=== PATIENT | female | born 1985 | race Caucasian/White ===

== ENCOUNTER 2017-06-24 19:36 | Emergency (ER) | payer OTHER ==
[~2017-06-24] VITALS: Ht 165.1 cm; Wt 93.4 kg
[2017-06-24 20:55] LABS: HEMATOCRIT 33.3 % (36.0-46.0); MCH 30.1 PG (29.0-34.0); MCV 83.5 FL (83-99); PLATELET COUNT 206 K/uL (156-360); RBC DIS.WIDTH-CV 12.9 % (11.8-14.6); RBC DIS.WIDTH-SD 39.3 % (39-53); RED BLOOD COUNT 3.99 M/uL (3.80-5.20); WHITE BLOOD COUNT 7.6 K/uL (4.1-10.2)
[2017-06-24 21:03] LABS: APPEARANCE SL.HAZY ((CLEAR)); BILIRUBIN NEGATIVE; BLOOD NEGATIVE; COLOR YELLOW ((YELLOW)); GLUCOSE (STRIP) >=500; KETONES 5; LEUKOCYTES NEGATIVE; NITRITE NEGATIVE; PROTEIN (STRIP) 100; SPECIFIC GRAVITY 1.035 (1.000-1.030)
[2017-06-24 21:50] LABS: BACTERIA NONE SEEN /HPF; CALCIUM OXALATE CRYSTALS 4+ /HPF; EPITHELIAL CELLS RARE /HPF; MUCUS TRACE /LPF; RED BLOOD CELLS NONE SEEN /HPF (0-5); UCUL ADDED? NO; WHITE BLOOD CELLS 0-5 /HPF (0-5)
[2017-06-24 22:48] VITALS: BP 129/78
[2017-06-24 22:49] LABS: QUANTITATIVE HCG 41911.2 MIU/ML
[2017-06-24 22:58] LABS: CHLORIDE 102 MEQ/L (99-109); CREATININE 0.7 MG/DL (0.6-1.3); GFR ESTIMATE (CALCULATED) > 59 mL/min/; GLUCOSE 234 mg/dL (70-99); POTASSIUM 3.8 MEQ/L (3.7-5.4); SODIUM 135 MEQ/L (136-147); UREA NITROGEN (BUN) 12 mg/dL (9-23)
== END 2017-06-24 22:48 | disposition home or self-care (01) ==
LOC: EME 19:36
DX: O20.0 Threatened abortion (principal); R10.9 Unspecified abdominal pain; O24.419 Gestational diabetes mellitus in pregnancy, unspecified control; Z3A.13 13 weeks gestation of pregnancy
CPT/HCPCS: 76801; 80048; 81003; 84702; 85027; 99281; 99284

== ENCOUNTER 2017-07-23 11:54 | Emergency (ER) | payer OTHER ==
[~2017-07-23] VITALS: Ht 167.6 cm; Wt 90.4 kg
[2017-07-23 12:49] LABS: HEMATOCRIT 32.6 % (36.0-46.0); HEMOGLOBIN 11.8 G/DL (11.9-15.5); MCH 30.9 PG (29.0-34.0); MCHC 36.2 G/DL (30.0-36.0); MCV 85.3 FL (83-99); PLATELET COUNT 186 K/uL (156-360); RBC DIS.WIDTH-CV 13.2 % (11.8-14.6); RBC DIS.WIDTH-SD 40.3 % (39-53); RED BLOOD COUNT 3.82 M/uL (3.80-5.20); WHITE BLOOD COUNT 7.4 K/uL (4.1-10.2)
[2017-07-23 12:59] LABS: CHLORIDE 106 mEq/L (99-109); SODIUM 136 mEq/L (136-147)
[2017-07-23 13:01] LABS: GLUCOSE 139 mg/dL (70-99)
[2017-07-23 13:04] LABS: CREATININE 0.7 mg/dL (0.6-1.3); GFR ESTIMATE (CALCULATED) > 59 mL/min/
[2017-07-23 13:05] LABS: UREA NITROGEN (BUN) 11 mg/dL (9-23)
[2017-07-23 13:13] LABS: QUANTITATIVE HCG 13206.4 MIU/ML
[2017-07-23 13:18] LABS: APPEARANCE CLEAR ((CLEAR)); BILIRUBIN NEGATIVE; BLOOD NEGATIVE; COLOR AMBER ((YELLOW)); GLUCOSE (STRIP) 150; KETONES NEGATIVE; LEUKOCYTES NEGATIVE; NITRITE NEGATIVE; PROTEIN (STRIP) 100; SPECIFIC GRAVITY 1.034 (1.000-1.030)
[2017-07-23 13:20] LABS: BACTERIA RARE /HPF; EPITHELIAL CELLS RARE /HPF; MUCUS TRACE /LPF; RED BLOOD CELLS 0-5 /HPF (0-5); UCUL ADDED? NO; WHITE BLOOD CELLS 0-5 /HPF (0-5)
[2017-07-23] MEDS ORDERED: ZOFRAN ODT4 MG PO (16:07)
[2017-07-23 16:18] VITALS: BP 116/81
== END 2017-07-23 16:19 | disposition home or self-care (01) ==
LOC: EME 11:54
DX: O44.02 Complete placenta previa NOS or without hemorrhage, second trimester (principal); Z3A.17 17 weeks gestation of pregnancy; O24.419 Gestational diabetes mellitus in pregnancy, unspecified control
CPT/HCPCS: 76805; 80048; 81003; 84702; 85027; 99281; 99284

== ENCOUNTER 2017-09-05 16:35 | Outpatient (CLI) | payer OTHER ==
[~2017-09-05] VITALS: Ht 165.1 cm; Wt 91.0 kg
[~2017-09-05 16:35] MED LIST: ZOFRAN ODT4 MG PO
[2017-09-05 16:59] VITALS: BP 124/64
[2017-09-05] MEDS ORDERED: PRENATAL TABLE1 EAC3 PO (17:05)
[2017-09-05] MEDS ORDERED: HUMALOG100 UNIT/1 SC (17:07)
[2017-09-05] MEDS ORDERED: FERRETTS325 MG PO (17:08)
[2017-09-05] MEDS ORDERED: HUMULIN 70100 UNIT/2 SQ (17:09)
== END 2017-09-05 18:00 | disposition home or self-care (01) ==
LOC: LDRP-OP 16:35 → 2WEST 16:37 → LDRP-OP 01-28 16:04
PROVIDERS: Obstetrics & Gynecology
DX: O36.8120 Decreased fetal movements, second trimester, not applicable or unspecified (principal); O24.912 Unspecified diabetes mellitus in pregnancy, second trimester; O99.212 Obesity complicating pregnancy, second trimester; O99.342 Other mental disorders complicating pregnancy, second trimester; E66.9 Obesity, unspecified; F32.9 Major depressive disorder, single episode, unspecified; Z3A.23 23 weeks gestation of pregnancy; Z79.4 Long term (current) use of insulin; Z87.891 Personal history of nicotine dependence; Z68.29 Body mass index [BMI] 29.0-29.9, adult
CPT/HCPCS: 59025; 82948; G0378

== ENCOUNTER → 2017-10-02 | Outpatient (CLI) | payer OTHER ==
[~2017-10-02] VITALS: Ht 167.6 cm; Wt 91.8 kg
[~2017-10-02] MED LIST changes: +ASPIR 8181 M1 PO; +FERRETTS325 MG PO; +HUMALOG100 UNIT/1 SC; +HUMULIN 70100 UNIT/2 SQ; +PRENATAL TABLE1 EAC3 PO
[2017-10-02 14:10] VITALS: BP 121/67
== END | disposition home or self-care (01) ==
LOC: IVINF 13:58
DX: Z34.80 Encounter for supervision of other normal pregnancy, unspecified trimester (principal); Z31.82 Encounter for Rh incompatibility status; Z3A.00 Weeks of gestation of pregnancy not specified; Z67.91 Unspecified blood type, Rh negative
CPT/HCPCS: J2790

== ENCOUNTER 2017-10-15 07:14 | Outpatient (CLI) | payer OTHER ==
[2017-10-15 07:37] VITALS: BP 124/71
[2017-10-15 10:21] LABS: APPEARANCE CLOUDY ((CLEAR)); BILIRUBIN NEGATIVE; BLOOD NEGATIVE; COLOR AMBER ((YELLOW)); GLUCOSE (STRIP) NEGATIVE; KETONES 20; LEUKOCYTES LARGE; NITRITE NEGATIVE; PROTEIN (STRIP) 100; SPECIFIC GRAVITY 1.026 (1.000-1.030)
[2017-10-15 10:39] LABS: BACTERIA RARE /HPF; EPITHELIAL CELLS 1+ /HPF; MUCUS TRACE /LPF; UCUL ADDED? YES; WHITE BLOOD CELLS TNTC /HPF (0-5)
== END 2017-10-15 09:21 | disposition home or self-care (01) ==
LOC: LDRP-OP 07:14 → 2WEST 07:15 → LDRP-OP 01-28 20:18
PROVIDERS: Obstetrics & Gynecology
DX: O23.40 Unspecified infection of urinary tract in pregnancy, unspecified trimester (principal); Z3A.00 Weeks of gestation of pregnancy not specified
CPT/HCPCS: 59025; 81003; 87077; 87086; 87186; G0378

== ENCOUNTER 2017-10-26 02:35 | Outpatient (CLI) | payer OTHER ==
[~2017-10-26] VITALS: Ht 167.6 cm; Wt 93.2 kg
[2017-10-26] VITALS (7 sets, daily range): BP systolic 110–125; BP diastolic 66–76
[2017-10-26 03:15] LABS: HEMATOCRIT 29.3 % (36.0-46.0); HEMOGLOBIN 10.4 G/DL (11.9-15.5); MCH 30.9 PG (29.0-34.0); MCHC 35.5 G/DL (30.0-36.0); MCV 86.9 FL (83-99); PLATELET COUNT 141 K/uL (156-360); RBC DIS.WIDTH-CV 13.1 % (11.8-14.6); RBC DIS.WIDTH-SD 41.1 % (39-53); RED BLOOD COUNT 3.37 M/uL (3.80-5.20); WHITE BLOOD COUNT 9.6 K/uL (4.1-10.2)
[2017-10-26 03:28] LABS: ALBUMIN 3.1 g/dL (3.2-4.8); CHLORIDE 105 mEq/L (99-109); POTASSIUM 3.9 mEq/L (3.7-5.4); SODIUM 134 mEq/L (136-147)
[2017-10-26 03:31] LABS: GLUCOSE 157 mg/dL (70-99)
[2017-10-26 03:32] LABS: TOTAL BILIRUBIN 1.2 mg/dL (0.0-1.0)
[2017-10-26 03:34] LABS: ALKALINE PHOSPHATASE 71 IU/L (3-129); CREATININE 0.6 mg/dL (0.6-1.3); GFR ESTIMATE (CALCULATED) > 59 mL/min/
[2017-10-26 03:35] LABS: UREA NITROGEN (BUN) 5 mg/dL (9-23)
[2017-10-26 03:36] LABS: AST (GOT) 8 IU/L (2-34)
[2017-10-26 03:37] LABS: ALT (GPT) 9 IU/L (3-49)
[2017-10-26 03:38] LABS: LIPASE 2 U/L (1.0-51.0)
[2017-10-26 03:46] LABS: QUANTITATIVE HCG 13456.5 MIU/ML
[2017-10-26 03:47] LABS: APPEARANCE CLOUDY ((CLEAR)); BILIRUBIN NEGATIVE; BLOOD SMALL; COLOR YELLOW ((YELLOW)); GLUCOSE (STRIP) 50; KETONES 20; LEUKOCYTES LARGE; NITRITE NEGATIVE; PROTEIN (STRIP) 30; SPECIFIC GRAVITY 1.011 (1.000-1.030)
[2017-10-26 04:04] LABS: BACTERIA 3+ /HPF; EPITHELIAL CELLS RARE /HPF; MUCUS NONE SEEN /LPF; RED BLOOD CELLS 0-5 /HPF (0-5); UCUL ADDED? YES; WHITE BLOOD CELLS TNTC /HPF (0-5)
[2017-10-26] MEDS ORDERED: TYLENOL REGULA325 MG PO (10:00)
[2017-10-26 17:36] LABS: CANDIDA DNA PROBE NEGATIVE; GARDNERELLA DNA PROBE NEGATIVE; TRICHOMONAS DNA PROBE NEGATIVE
[2017-10-27 02:42] VITALS: BP 119/72
[2017-10-27 06:09] LABS: BASOPHIL (%) 0.3 % (0-1); EOSINOPHIL COUNT 0.1 K/uL (0-0.3); HEMATOCRIT 31.4 % (36.0-46.0); IMMATURE GRANULOCYTE (%) 0.7 % (0.0-0.7); LYMPHOCYTE (%) 23.4 % (15-42); LYMPHOCYTE COUNT 1.6 K/uL (1.0-2.8); MCH 30.6 PG (29.0-34.0); MCV 87.5 FL (83-99); MONOCYTE (%) 7.2 % (3-12); MONOCYTE COUNT 0.5 K/uL (0-0.8); NEUTROPHIL (%) 67.4 % (45-76); NEUTROPHIL COUNT 4.6 K/uL (1.8-6.4); PLATELET COUNT 161 K/uL (156-360); RBC DIS.WIDTH-CV 13.2 % (11.8-14.6); RED BLOOD COUNT 3.59 M/uL (3.80-5.20); WHITE BLOOD COUNT 6.8 K/uL (4.1-10.2)
[2017-10-27 08:01] VITALS: BP 118/78
[2017-10-27 08:18] LABS: SOURCE SWAB
[2017-10-27] MEDS ORDERED: MACROBID100 MG PO (08:29)
[2017-10-27] MEDS ORDERED: KEFLEX500 MG PO (08:29)
== END 2017-10-27 08:39 | disposition home or self-care (01) ==
LOC: EME 02:35 → LDRP-OP 02:35 → EDSTATUS 05:08 → 2WEST 05:09
PROVIDERS: Emergency Medicine; Obstetrics & Gynecology
DX: O23.03 Infections of kidney in pregnancy, third trimester (principal); B96.20 Unspecified Escherichia coli [E. coli] as the cause of diseases classified elsewhere; O24.113 Pre-existing type 2 diabetes mellitus, in pregnancy, third trimester; E11.9 Type 2 diabetes mellitus without complications; Z79.4 Long term (current) use of insulin; O99.343 Other mental disorders complicating pregnancy, third trimester; F32.9 Major depressive disorder, single episode, unspecified; Z83.3 Family history of diabetes mellitus; Z3A.31 31 weeks gestation of pregnancy
CPT/HCPCS: 59025; 76770; 76805; 80053; 81003; 82948; 83690; 84702; 85025; 85027; 87077; 87086; 87186; 87480; 87491; 87510; 87591; 87660; 99281; 99284; G0378; J0696; J1815; J7120